=== PATIENT | female | born 1960 | race Asian ===

== ENCOUNTER 2020-02-14 08:44 | Outpatient (CLI) | payer OTHER ==
[2020-02-14 09:18] LABS: BASOPHILS # (AUTO) 0.1 K/uL (0.00-0.22); BASOPHILS % (AUTO) 0.9 % (0.0-2.0); EOSINOPHILS # (AUTO) 0.2 K/uL (0-0.4); EOSINOPHILS % (AUTO) 3.5 % (0.0-4.0); HEMATOCRIT 40.7 % (36-48); HEMOGLOBIN 13.7 g/dL (12.0-16.0); LYMPHOCYTES # (AUTO) 2.2 K/uL (2.5-16.5); LYMPHOCYTES % (AUTO) 31.6 % (20.5-51.1); MEAN CORPUSCULAR HEMOGLOBIN 29 pg (27-31); MEAN CORPUSCULAR HGB CONC 34 g/dL (33-37); MEAN CORPUSCULAR VOLUME 86.4 fL (80-94); MONOCYTES # (AUTO) 0.5 K/uL (0.8-1.0); MONOCYTES % (AUTO) 6.6 % (1.7-9.3); NEUTROPHILS % (AUTO) 57.4 % (42.2-75.2); PLATELET COUNT (AUTO) 304 K/uL (140-450); RED BLOOD CELL COUNT(AUTO) 4.71 MIL/uL (4.20-5.40); RED CELL DISTRIBUTION WIDTH 12.9 % (11.6-13.7); WHITE BLOOD COUNT (AUTO) 6.9 K/uL (4.8-10.8)
[2020-02-14 09:32] LABS: APPEARANCE,URINE CLEAR (CLEAR); BILIRUBIN,URINE NEGATIVE (NEGATIVE); BLOOD, URINE NEGATIVE (NEGATIVE); COLOR,URINE YELLOW (YELLOW); LEUKOCYTE ESTERASE ,URINE NEGATIVE (NEGATIVE); NITRITE, URINE NEGATIVE (NEGATIVE); UGLUCOSE NEGATIVE (NEGATIVE)
[2020-02-14 22:58] LABS: ALBUMIN 4.3 g/dL (3.4-5.0); CARBON DIOXIDE 25.8 mmol/L (21-32); CREATININE 0.8 mg/dL (0.6-1.3); POTASSIUM 3.8 mmol/L (3.5-5.1); TOTAL BILIRUBIN 0.4 mg/dL (0.0-1.0)
[2020-02-14 23:09] LABS: URIC ACID 8.2 mg/dL (2.6-7.2)
[2020-02-15 09:07] LABS: T4 FREE (DIRECT) 1.33 ng/dL (0.82-1.77)
== END 2020-02-14 20:06 | disposition home or self-care (01) ==
LOC: MLB 08:44
DX: E78.5 Hyperlipidemia, unspecified (principal); I10 Essential (primary) hypertension; B96.81 Helicobacter pylori [H. pylori] as the cause of diseases classified elsewhere; R73.09 Other abnormal glucose; K21.9 Gastro-esophageal reflux disease without esophagitis; E79.0 Hyperuricemia without signs of inflammatory arthritis and tophaceous disease; Z00.00 Encounter for general adult medical examination without abnormal findings
CPT/HCPCS: 36415; 80053; 81003; 82306; 83036; 84439; 84550; 85025; 86038

== ENCOUNTER 2022-02-14 07:21 | Outpatient (CLI) | payer OTHER ==
[2022-02-14 08:41] LABS: BASOPHILS % (AUTO) 0.5 % (0.0-2.0); EOSINOPHILS # (AUTO) 0.2 K/uL (0-0.4); EOSINOPHILS % (AUTO) 4.5 % (0.0-4.0); HEMATOCRIT 38.9 % (36-48); HEMOGLOBIN 13.2 g/dL (12.0-16.0); LYMPHOCYTES # (AUTO) 1.6 K/uL (2.5-16.5); LYMPHOCYTES % (AUTO) 31.2 % (20.5-51.1); MEAN CORPUSCULAR HEMOGLOBIN 29 pg (27-31); MEAN CORPUSCULAR HGB CONC 34 g/dL (33-37); MEAN CORPUSCULAR VOLUME 85.1 fL (80-94); MONOCYTES # (AUTO) 0.3 K/uL (0.8-1.0); MONOCYTES % (AUTO) 6.5 % (1.7-9.3); NEUTROPHILS % (AUTO) 57.3 % (42.2-75.2); PLATELET COUNT (AUTO) 294 K/uL (140-450); RED BLOOD CELL COUNT(AUTO) 4.57 MIL/uL (4.20-5.40); RED CELL DISTRIBUTION WIDTH 12.7 % (11.6-13.7); WHITE BLOOD COUNT (AUTO) 5.2 K/uL (4.8-10.8)
== END 2022-02-14 20:33 | disposition home or self-care (01) ==
LOC: MLB 07:21
PROVIDERS: ATTEND Internal Medicine
DX: M85.80 Other specified disorders of bone density and structure, unspecified site (principal); M79.671 Pain in right foot
CPT/HCPCS: 36415; 83520; 84550; 85025; 85651; 86038; 86430

== ENCOUNTER 2022-03-02 07:26 | Outpatient (CLI) | payer OTHER | END 2022-03-02 17:23 | disposition home or self-care (01) | LOC: MRD 07:26 | PROVIDERS: ATTEND Internal Medicine | DX: M77.31 Calcaneal spur, right foot (principal); M79.671 Pain in right foot | CPT/HCPCS: 73630 ==

== ENCOUNTER 2022-04-13 09:23 | Emergency (ER) | payer OTHER ==
[~2022-04-13] VITALS: Ht 162.6 cm; Wt 65.8 kg
[2022-04-13 09:32] VITALS: BP 141/87
--- NOTE | 2022-04-13 10:01 | NUR ---
PT SWABBED AND SENT TO LAB
[2022-04-13] MEDS ORDERED: ALBU0.0912 INH (11:18)
[2022-04-13] MEDS ORDERED: BENZ150C2 PO (11:18)
--- NOTE | 2022-04-13 11:35 | NUR ---
Patient discharged with v/s stable. Written and verbal after care instructions ABOUT COUGH given and explained. Patient alert, oriented and verbalized understanding of instructions. Ambulatory with steady gait. All questions addressed prior to discharge. ID band removed. Patient advised to follow up with PMD. Rx of ALBUTEROL AND BENZONATATE given. Patient educated on indication of medication including possible reaction and side effects. Opportunity to ask questions provided and answered.
== END 2022-04-13 11:35 | disposition home or self-care (01) ==
LOC: MED 09:23
DX: J06.9 Acute upper respiratory infection, unspecified (principal); Z20.822 Contact with and (suspected) exposure to COVID-19
CPT/HCPCS: 87081; 99283

== ENCOUNTER 2022-04-16 10:00 | Emergency (ER) | payer OTHER ==
[~2022-04-16] VITALS: Ht 157.5 cm; Wt 0.5 kg
[~2022-04-16 10:00] MED LIST: ALBU0.0912 INH; BENZ150C2 PO
[2022-04-16 10:24] VITALS: BP 125/74
[2022-04-16] MEDS ORDERED: AZIT250T4 PO (11:16)
[2022-04-16] MEDS ORDERED: METH4TAB1 PO (11:16)
--- NOTE | 2022-04-16 12:11 | NUR ---
Patient discharged with v/s stable. Written and verbal after care instructions ABOUT PHARYNGITIS given and explained. Patient alert, oriented and verbalized understanding of instructions. Ambulatory with steady gait. All questions addressed prior to discharge. ID band removed. Patient advised to follow up with PMD. Rx of AZITHROMYCIN, MEDROL given. Patient educated on indication of medication including possible reaction and side effects. Opportunity to ask questions provided and answered.
== END 2022-04-16 12:11 | disposition home or self-care (01) ==
LOC: MED 10:00
DX: J02.9 Acute pharyngitis, unspecified (principal); I10 Essential (primary) hypertension; Z79.899 Other long term (current) drug therapy
CPT/HCPCS: 71045; 99283

== ENCOUNTER 2022-09-05 08:15 | Outpatient (CLI) | payer OTHER ==
[~2022-09-05 08:15] MED LIST changes: +AZIT250T4 PO; +METH4TAB1 PO
== END 2022-09-05 20:30 | disposition home or self-care (01) ==
LOC: MRD 08:15
PROVIDERS: ATTEND Internal Medicine
DX: M19.041 Primary osteoarthritis, right hand (principal); M25.741 Osteophyte, right hand
CPT/HCPCS: 73140

== ENCOUNTER 2022-10-24 07:42 | Outpatient (CLI) | payer OTHER ==
[2022-10-24 08:56] LABS: APPEARANCE,URINE CLEAR (CLEAR); BILIRUBIN,URINE NEGATIVE (NEGATIVE); BLOOD, URINE NEGATIVE (NEGATIVE); COLOR,URINE YELLOW (YELLOW); LEUKOCYTE ESTERASE ,URINE NEGATIVE (NEGATIVE); NITRITE, URINE NEGATIVE (NEGATIVE); UGLUCOSE NEGATIVE (NEGATIVE)
[2022-10-24 09:19] LABS: ALBUMIN 3.8 g/dL (3.4-5.0); ANION GAP 15.1 (8-16); CARBON DIOXIDE 23.8 mmol/L (21-32); CHOL/HDL RATIO 1.7 (1-4.5); CREATININE 0.6 mg/dL (0.6-1.3); POTASSIUM 3.9 mmol/L (3.5-5.1); THYROID STIMULATING HORMONE 1.53 uIU/mL (0.34-3.74); TOTAL BILIRUBIN 0.4 mg/dL (0.0-1.0); URIC ACID 6.9 mg/dL (2.6-7.2)
[2022-10-24 13:28] LABS: BASOPHILS % (AUTO) 0.6 % (0.0-2.0); EOSINOPHILS # (AUTO) 0.2 K/uL (0-0.4); EOSINOPHILS % (AUTO) 3.8 % (0.0-4.0); HEMATOCRIT 37.3 % (36-48); HEMOGLOBIN 12.5 g/dL (12.0-16.0); LYMPHOCYTES # (AUTO) 1.8 K/uL (2.5-16.5); LYMPHOCYTES % (AUTO) 32.4 % (20.5-51.1); MEAN CORPUSCULAR HEMOGLOBIN 29 pg (27-31); MEAN CORPUSCULAR HGB CONC 34 g/dL (33-37); MEAN CORPUSCULAR VOLUME 85.5 fL (80-94); MONOCYTES # (AUTO) 0.3 K/uL (0.8-1.0); MONOCYTES % (AUTO) 5.7 % (1.7-9.3); NEUTROPHILS # (AUTO) 3.2 K/uL (1.8-7.7); NEUTROPHILS % (AUTO) 57.5 % (42.2-75.2); PLATELET COUNT (AUTO) 253 K/uL (140-450); RED BLOOD CELL COUNT(AUTO) 4.36 MIL/uL (4.20-5.40); RED CELL DISTRIBUTION WIDTH 12.9 % (11.6-13.7); WHITE BLOOD COUNT (AUTO) 5.6 K/uL (4.8-10.8)
[2022-10-25 21:12] LABS: T4 FREE (DIRECT) 1.38 ng/ml (0.82-1.77); TRIIODOTHYRONINE FREE 3.1 pg/mL (2.0 - 4.4)
[2022-10-28 05:52] LABS: ANTI-NUCLEAR ANTIBODY,DIRECT Negative (Negative)
== END 2022-10-24 22:47 | disposition home or self-care (01) ==
LOC: MLB 07:42
PROVIDERS: ATTEND Internal Medicine
DX: Z00.00 Encounter for general adult medical examination without abnormal findings (principal); I10 Essential (primary) hypertension; M25.50 Pain in unspecified joint; E78.5 Hyperlipidemia, unspecified; R73.09 Other abnormal glucose; E04.2 Nontoxic multinodular goiter
CPT/HCPCS: 36415; 76536; 80053; 80061; 81003; 83036; 83520; 84439; 84443; 84481; 84550; 85025; 85651; 86038; 86430; Q0092

== ENCOUNTER 2023-11-21 07:27 | Outpatient (CLI) | payer OTHER ==
[~2023-11-21 07:27] MED LIST changes: -BENZ150C2 PO; +BENZ150C7 PO
== END 2023-11-21 21:51 | disposition home or self-care (01) ==
LOC: MRD 07:27
PROVIDERS: ATTEND Internal Medicine
DX: M47.26 Other spondylosis with radiculopathy, lumbar region (principal); I70.0 Atherosclerosis of aorta; M54.50 Low back pain, unspecified
CPT/HCPCS: 72110

== ENCOUNTER 2024-01-05 16:49 | Emergency (ER) | payer OTHER ==
[~2024-01-05] VITALS: Ht 154.9 cm; Wt 63.5 kg
[2024-01-05 17:13] VITALS: BP 122/95; PULSE 59; RESP 22; TEMP 97.6; O2SAT 98
[2024-01-05 17:30] VITALS: O2SAT 98
[2024-01-05 17:51] LABS: BASOPHILS # (AUTO) 0.1 K/uL (0.00-0.22); BASOPHILS % (AUTO) 0.6 % (0.0-2.0); EOSINOPHILS # (AUTO) 0.2 K/uL (0-0.4); EOSINOPHILS % (AUTO) 1.7 % (0.0-4.0); HEMATOCRIT 38.2 % (36-48); HEMOGLOBIN 12.5 g/dL (12.0-16.0); LYMPHOCYTES # (AUTO) 2.2 K/uL (2.5-16.5); LYMPHOCYTES % (AUTO) 24.1 % (20.5-51.1); MEAN CORPUSCULAR HEMOGLOBIN 29 pg (27-31); MEAN CORPUSCULAR HGB CONC 33 g/dL (33-37); MEAN CORPUSCULAR VOLUME 87.2 fL (80-94); MONOCYTES # (AUTO) 0.7 K/uL (0.8-1.0); MONOCYTES % (AUTO) 8.1 % (1.7-9.3); NEUTROPHILS % (AUTO) 65.5 % (42.2-75.2); PLATELET COUNT (AUTO) 248 K/uL (140-450); RED BLOOD CELL COUNT(AUTO) 4.38 MIL/uL (4.20-5.40); RED CELL DISTRIBUTION WIDTH 12.8 % (11.6-13.7); WHITE BLOOD COUNT (AUTO) 9.2 K/uL (4.8-10.8)
[2024-01-05 18:15] LABS: ANION GAP 15.3 (8-16); APPEARANCE,URINE CLEAR (CLEAR); BILIRUBIN,URINE NEGATIVE (NEGATIVE); BLOOD, URINE NEGATIVE (NEGATIVE); CARBON DIOXIDE 24.7 mmol/L (21-32); COLOR,URINE YELLOW (YELLOW); CREATININE 0.8 mg/dL (0.6-1.3); LEUKOCYTE ESTERASE ,URINE NEGATIVE (NEGATIVE); NITRITE, URINE NEGATIVE (NEGATIVE); PROTEIN,URINE NEGATIVE (NEGATIVE); UGLUCOSE NEGATIVE (NEGATIVE); UROBILINOGEN,URINE 0.2 EU/dL (0.2 - 1)
[2024-01-05 18:22] LABS: ALBUMIN 4.2 g/dL (3.4-5.0); BILIRUBIN,DIRECT 0.1 mg/dL (0.0-0.3); TOTAL BILIRUBIN 0.5 mg/dL (0.0-1.0); TOTAL PROTEIN, SERUM 7.9 g/dL (6.4-8.2)
[2024-01-05 18:31] LABS: BACTERIA,URINE 1+ /HPF (None Seen); RBC,URINE 0-5 /HPF (0-5); WBC,URINE NONE SEEN /HPF (0-5)
[2024-01-05] MEDS ORDERED: AMOX1TAB8 PO (18:44)
[2024-01-05 18:58] VITALS: BP 138/79; PULSE 52; RESP 16; TEMP 98.1; O2SAT 99
== END 2024-01-05 18:58 | disposition home or self-care (01) ==
LOC: MED 16:49
DX: K57.92 Diverticulitis of intestine, part unspecified, without perforation or abscess without bleeding (principal); I10 Essential (primary) hypertension; Z90.49 Acquired absence of other specified parts of digestive tract; Z90.710 Acquired absence of both cervix and uterus; Z79.899 Other long term (current) drug therapy
CPT/HCPCS: 36415; 80048; 80076; 81001; 83605; 83690; 85025; 87040; 99284